=== PATIENT | male | born 1940 | race Caucasian/White ===

== ENCOUNTER → 2016-10-13 | Outpatient (CLI) | payer MEDICARE ==
--- NOTE | 2016-10-13 11:10 | KCIC ---
PROCEDURE MRI lumbar spine without contrast. HISTORY Lumbar pain, previous surgery in 2015, twisting injury 1 month ago, severe pain in the left hip and left leg TECHNIQUE Sagittal and axial T1 and T2 and sagittal STIR images were acquired of the lumbar spine. Contrast: None COMPARISON None FINDINGS There is grade 1 anterior spondylolisthesis at what is considered L4-5 and L3-4, negligible posterior subluxation L2 relative to L3. There is severe narrowing of the L5-S1 intervertebral disc space, partial fusion. There is advanced degenerative disc disease at L2-3 to a lesser degree at L3-4, minimally at L4-5 and L1-2. There is amorphous edema of the L2-3 endplates greater on the right, no fluid the in the intervertebral disc space. There is some mild endplate irregularity at L2-3, small superior L4 Schmorl's node. Otherwise vertebral body stature is adequate. Conus terminates normally at L1. There is apparently an aneurysm of the right common iliac artery on the order of 3.1 cm. There are some small T2 hyperintense lesions of the visualized bilateral kidneys not fully included, more likely to be cysts. T12-L1: Spinal canal and neural foramina are adequate. L1-2: There is very shallow protrusion in the right lateral recess. Spinal canal and neural foramina are adequate. L2-3: There is broad posterior disc osteophyte complex and shallow bulge. There is moderate facet degenerative change and mild to moderate buckling of the ligamentum flavum. There is mild narrowing of the far lateral recesses bilaterally. There is mild left and moderate to severe right neural foramina compromise, contact of the extraforaminal right L2 nerve root by disc osteophyte complex and protrusion although not significantly displaced. There is a small hemangioma of the right L3 vertebral body. L3-L4: There is severe facet hypertrophic change. There is partial uncovering of the posterior aspect of the disc due to spondylolisthesis with superimposed bulge. There is also extrusion extending above the intervertebral disc space level in the left lateral recess on the order 10 millimeters cc by 8 millimeters AP by 12 millimeters transverse, superior extent to the superior 1/3 of the L3 vertebral body. At the intervertebral disc space level, there is moderate left and mild to moderate right lateral recess stenosis. Above the intervertebral disc space level, there is moderate left lateral recess stenosis. There is contact of the left L3 nerve root in the left lateral recess and at the proximal aspect of the left L3-4 neural foramen. There is fairly severe narrowing of the left neural foramen, right neural foramen adequate. L4-5: There is fairly severe facet degenerative change and mild buckling of the ligamentum flavum. There is mild left lateral recess stenosis. Right neural foramen is adequate, moderate narrowing of the left neural foramen in part from disc osteophyte complex. L5-S1: Spinal canal and neural foramina are adequate. IMPRESSION 1. There is left lateral recess stenosis at and above the L3-4 level in part by extrusion which contacts the left L3 nerve root in the left lateral recess and at proximal aspect of the left neural foramen, also narrowing of the left L3-4 neural foramen. 2. There is grade 1 anterior spondylolisthesis at L3-4 and L4-5, negligible posterior subluxation L2 relative to L3. There is multilevel lumbar facet degenerative change. 3. There is other neural foramina compromise as described such as on the left at L4-5 and right greater than left at L2-3. 4. There is advanced degenerative disc disease at L2-3 and to a somewhat lesser degree at L3-4. There is narrowing of the L5-S1 intervertebral disc space at which there is partial fusion likely on a postsurgical basis. 5. 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 Electronically signed by: Frank Barba MD (Oct 13, 2016 11:08:52)
== END ==
LOC: KCIC MRI 08:57
PROVIDERS: ATTEND Family Medicine
DX: M54.5 Low back pain (principal); M43.16 Spondylolisthesis, lumbar region; M47.896 Other spondylosis, lumbar region
CPT/HCPCS: 72148

== ENCOUNTER → 2017-06-06 | Outpatient (CLI) | payer MEDICARE ==
[~2017-06-06] MED LIST: IOHEXOL 300 MG/ML 75 ML VIAL IV ONE
[2017-06-06 08:44] LABS: CREATININE 1.1 mg/dL (0.7-1.3); GFR 64.7
--- NOTE | 2017-06-06 10:11 | RAD ---
CT angiogram of the abdomen and pelvis Indication: Abdominal aortic and without rupture Technique: CT angiogram of the abdomen and pelvis with 90 mL of Omnipaque 300 with multi planar MIP reformats. 3-D volume rendered post process was performed. Comparison: None Findings: Heart is mildly enlarged in size. No pericardial or pleural effusion. Calcified right hilar lymph node. Mild scarring within left lung base. No hyperenhancing liver lesions. Too small to characterize low attenuating lesion in the segment 4A (series 5 image 16). Gallstones noted. No pericholecystic fluid of gallbladder wall thickening. No intrahepatic or extrahepatic biliary duct dilation. Spleen is within normal limits. Pancreas is within normal limits. Adrenal glands show no nodularity. Punctate nonobstructing left renal stones. Simple cyst seen within bilateral kidneys. No hydronephrosis. No retroperitoneal or pelvic adenopathy. Small sliding hiatal hernia. No bowel obstruction. Normal appendix. Mild sigmoid and distal descending colon diverticulosis. Bladder is markedly distended however show no focal lesion. Prostate is enlarged and measures 6.3 x 4.6 x 5.3 cm. Scattered atherosclerotic disease of the abdominal aorta noted. The abdominal aorta at the level of renal arteries measure 2.0 cm. There is mild aneurysmal dilation of the infrarenal aorta measuring 2.3 cm in widest dimension. Mild amount of eccentric plaque is seen just above the bifurcation of the aorta. There is aneurysmal dilation of the right common iliac artery with plaque eccentric thrombus along the medial aspect extending to the level of bifurcation. The aneurysm measures 4.1 cm. The patent lumen measures 2.2 cm in widest dimension. There is no perianeurysmal soft tissue density to suggest leak. The left common iliac artery measures 1.3 cm. Mild plaque burden at the origin of celiac axis which is patent. Mild plaque burden at the origin of SMA which is patent. Mild plaque burden at the origin of bilateral renal arteries which are patent. PARAG is patent. Lumbar arteries are visualized which are patent. Bilateral external iliac arteries are patent without evidence of atherosclerotic disease. Scattered atherosclerotic disease of the bilateral internal carotid arteries noted which are patent. Mild atherosclerotic disease of the bilateral common femoral arteries noted which are patent. Visualized superficial femoral arteries and deep femoral arteries are patent. Small fat-containing right inguinal hernia. No suspicious bony lesions. Multilevel degenerative disc disease in the lumbar spine with severe facet arthropathy. Grade 1 anterolisthesis of L3 over L4. Impression: 1. Mild infrarenal aortic aneurysm (2.3 cm). 2. 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 3. Cholelithiasis without acute cholecystitis. 4. Enlarged prostate. Clinically correlate with physical exam and PSA level. 5. Lumbar spine degenerative disc disease with facet arthropathy. PQRS Compliance Statement: One or more of the following individualized dose reduction techniques were utilized for this examination: 1. Automated exposure control 2. Adjustment of the mA and/or kV according to patient size 3. Use of iterative reconstruction technique
== END | disposition home or self-care (01) ==
LOC: CT 09:05
PROVIDERS: ATTEND Surgery
DX: I71.4 Abdominal aortic aneurysm, without rupture (principal); K80.20 Calculus of gallbladder without cholecystitis without obstruction; I72.3 Aneurysm of iliac artery; M51.36 Other intervertebral disc degeneration, lumbar region; N40.0 Benign prostatic hyperplasia without lower urinary tract symptoms; Z79.01 Long term (current) use of anticoagulants
CPT/HCPCS: 36415; 74174; 82565; Q9967